=== PATIENT | female | born 1990 | race Caucasian/White ===

== ENCOUNTER 2017-10-03 14:39 | Emergency (ER) | payer OTHER ==
[~2017-10-03] VITALS: Ht 157.5 cm; Wt 47.6 kg
[2017-10-03 14:52] VITALS: Ht 157.5 cm; Wt 47.6 kg
[2017-10-03 15:27] LABS: microscopic required? YES; urine erythrocyte 1+ (NEGATIVE)
[2017-10-03 18:37] VITALS: BP 112/80
== END 2017-10-03 18:30 | disposition home or self-care (01) ==
LOC: ED 14:39
PROVIDERS: Specialist
DX: N39.0 Urinary tract infection, site not specified (principal); R11.10 Vomiting, unspecified
CPT/HCPCS: 83880; J0696; J0780; J1885; J3490; J7030